=== PATIENT | female | born 1975 ===

== ENCOUNTER 2019-01-30 07:30 | Observation (INO) | payer OTHER ==
[2019-01-30] MEDS ORDERED: Bupivacaine HCl 0.25% PF (10 ml) Inj ONE (08:07)
[2019-01-30] MEDS ORDERED: Lidocaine/Epinephrine 1% 1:100000 10 ML IJ ONE (08:08)
[2019-01-30] MEDS ORDERED: ceFAZolin 1 gm in NS 1 GM/100 ML BAG IVPB ONE (08:08)
[2019-01-30 08:34] VITALS: BMI 19.1
[2019-01-30] MEDS ORDERED: Midazolam 2 MG/2 ML VIAL ONE (09:16)
[2019-01-30] MEDS ORDERED: Propofol 10 mg/ml Inj (20 ML) ONE (09:16)
[2019-01-30] MEDS ORDERED: Rocuronium 10 mg/ml (5 ml) ONE (09:25)
[2019-01-30] MEDS: HYDROmorphone 0.5 mg/0.5 ml ISec IVP PRN ×2 (12:15→12:38)
[2019-01-30] MEDS ORDERED: HYDROmorphone 0.5 mg/0.5 ml ISec ONE (12:17)
[2019-01-30] MEDS ORDERED: Oxycodone/Acetaminophen 5/325 mg Tab PO PRN ×2 (12:21)
[2019-01-30] MEDS: cefOXitin 1 GM in Sodium Chloride 0.9% 100 ML IVPB SCH (16:52)
[2019-01-30] MEDS ORDERED: Lactated Ringer's 1,000 ML IV SCH (19:00)
[2019-01-31] MEDS: cefOXitin 1 GM in Sodium Chloride 0.9% 100 ML IVPB SCH ×2 (00:10→09:09)
--- NOTE | 2019-01-31 01:20 | OP ---
PROCEDURE DATE: 01/30/2019 SURGEON: Zahra Ma MD DESKTOP ADMINISTRATOR: MANDO Gar PREOPERATIVE DIAGNOSES: Abnormal uterine bleeding, pelvic pain, fibroids, pelvic pressure, umbilical hernia. POSTOPERATIVE DIAGNOSES: Abnormal uterine bleeding, pelvic pain, fibroids, pelvic pressure, umbilical hernia with retroperitoneal fibrosis. PROCEDURES PERFORMED: Total robotic hysterectomy, bilateral salpingectomy, cystoscopy, bilateral ureteral catheterizations, bilateral ureterolysis, and umbilical hernia repair with cystoscopy. OPERATIVE FINDINGS: Enlarged greater than 250 g multifibroid uterus with ovarian and tubal adhesions to pelvic sidewall, ureter adhesion retroperitoneally, retroperitoneal fibrosis, small umbilical hernia noted that was repaired. Lisa Tyler, director medical surgical, was present for the entire case essential in entry, gaining retraction, exposure, docking the robot, obtaining access, performing the procedure, manipulating the uterine manipulator device, removing the specimens, closing all layers, repairing the hernia, and was present for the entire case. ESTIMATED BLOOD LOSS: 100 mL. BLOOD PRODUCTS: None. COMPLICATIONS: None. SPECIMENS: Right and left fallopian tube, uterus, and cervix. DESCRIPTION OF PROCEDURE: The patient was taken to the operating room where she was given general anesthesia. Once it was found to be adequate, she was placed on the operating table in dorsal supine position with legs supported using stirrups. The patient was then prepped and draped in the usual sterile fashion. The patient was given preoperative prophylactic antibiotics. Time-out was performed to confirm correct patient and correct procedure. Bimanual exam was performed with above-mentioned findings. The patient had a cystoscopy done in which the cystoscope was then inserted into the urethra. There was bilateral ureteral jets noted. No evidence of trigonitis, bladder masses or abnormalities. Ureteral catheterization was performed on either side in which 5 mL of IC-green were inserted. The cystoscope was then removed and a Tyson catheter was then inserted. A Johns retractor was placed in the anterior and posterior fornix of the vagina. The cervix was adequately visualized. The single-tooth tenaculum was then placed on the anterior lip of the cervix. The uterus was then sounded to 9 cm. Following this, the cervix was sequentially dilated to allow for the V-Care large uterine device to be inserted. The balloon was then insufflated with 10 mL of air. Following this, the green and blue cup were then applied to the cervix as appropriately. Tenaculum was removed and arms were removed. The legs were then re-positioned. The surgeon then re-gloved, and attention of then turned to the abdomen in which the umbilical incision was made after the administration of 0.25 Marcaine with epinephrine. The skin was then incised in a vertical fashion. The skin was then tented up. The fascia was identified. Scalpel was made. Confirmation of the peritoneal cavity was confirmed with Estephania clamp. The trocar then was inserted. The abdomen was insufflated with a normal opening pressure. The abdomen was insufflated to 15 mmHg of air. A laparoscope was then inserted. There was no injury or trauma noted. Following that, an 8 mm skin incision was made in the right and left lower quadrants after administration of local anesthetic and the trocars inserted under direct visualization. The patient was then placed in Trendelenburg position and the bowels were then removed out of the operative field. The operative robotic da Genet device was then docked as per the appropriate manufacture protocol. The endoscope was placed in port 2, a monopolar device in port 3 and a vessel sealer in arm 3. The appropriate cords were then connected. Following this, the round ligaments on either side were dissected, cauterized, and cut using the vessel sealer device on either side. The utero-ovarian ligaments were identified, cauterized and cut using the vessel sealer device. The distal fimbriated end of the fallopian tubes on either side were removed along the mesosalpinx up to the utero-ovarian and specimen was then removed and placed in the cul-de-sac. Following this, the ovary was noted to be adherent to the pelvic sidewall and the uterine was identified in which the IP ligament was identified and using the using the IC-green feature, the peritoneum was carefully dissected to dissect the ureter on either side to avoid injury. There was retroperitoneal fibrosis which was carefully dissected. There was no injury to the ureter. Following this, the anterior portion of the broad ligament was then incised and the bladder flap was created with monopolar scissors. This was carried in line on other side in which the ureter was also dissected on the contralateral side and the ovary was attached to the IP ligament. The ureter was dissected from all adhesions prior to dissecting the utero-ovarian removing the fallopian tube and dissecting from the round ligament to the anterior portion of the broad ligament. Once the bladder flap was created, the uterine arteries were then carefully skeletonized and the uterine arteries were cauterized using the vessel sealer device, coagulated 3 times and then cut. Again, the ureter was carefully noticed and out of the operative site. Following this, a posterior colpotomy was made with monopolar scissors and carried anteriorly along the green which was carefully dissected. Once the specimen was free, the specimen was removed through the vagina in addition to the two fallopian tubes. Following this, a suction law researcher was inserted to one of the ports and there was good hemostasis noted. A 6 inch V-Loc needle was inserted and the vaginal cuff was reapproximated and closed in a continuous manner. There was good hemostasis noted. The abdomen and pelvis was then carefully irrigated and inspected. There was good hemostasis noted. The ureter was mostly cleared from all incisions. Following this, attention was then turned to the umbilical site where there was an omental hernia noted. All instruments were removed. There was good hemostasis noted. The abdomen was then desufflated. Following this, the umbilical sac was identified and removed and the fascia was reapproximated and closed using multiple interrupted sutures of Prolene. The umbilical hernia had been repaired and the sutures had been carefully tied. Following this, the skin was reapproximated and closed with 4-0 Monocryl in a running subcuticular fashion. The abdomen was then prepped and cleaned. Steri-Strips and island dressings were then applied. Attention was then turned to the perineum in which the Tyson catheter was removed and the cystoscope was then re-introduced, and there was bilateral ureteral jets noted to be peristalsing on either side. A new Tyson catheter was inserted. At the end of the procedure, all needle, sponge and instrument counts were noted to be correct x2. The patient tolerated the procedure well and was transferred to the recovery room in stable condition. Zahra Ma MD
[2019-01-31 07:57] LABS: BASO % 0.3 % (0.0-2.0); EOS % 0.3 % (0.0-4.0); LYMPH # 3.7 K/uL (1.0-4.3); MEAN CELL VOLUME 94.2 fL (81.0-99.0); MEAN CORPUSCULAR HEMOGLOBIN 32.7 pg (27.0-31.0); MEAN CORPUSCULAR HGB CONC 34.8 g/dL (33.0-37.0); MEAN PLATELET VOLUME 9.5 fL (7.2-11.7); MONO # 0.8 K/uL (0.0-0.8); MONO % 5.4 % (0.0-10.0); NEUT # 9.7 K/uL (1.8-7.0); NRBC % 0.1 % (0.0-2.0); RBC 3.97 Mil/uL (3.80-5.20); RED CELL DISTRIBUTION WIDTH 12.8 % (11.5-14.5); WHITE BLOOD COUNT 14.3 K/uL (4.8-10.8)
[2019-01-31 08:08] LABS: ALB/GLOB RATIO 1.3 (1.0-2.1); ALBUMIN 3.7 g/dL (3.5-5.0); ALT/SGPT 24 U/L (9-52); AST/SGOT 29 U/L (14-36); BLOOD UREA NITROGEN 7 mg/dL (7-17); CALCIUM 8.9 mg/dl (8.6-10.4); GFR NON-AFRICAN AMERICAN > 60
--- NOTE | 2019-01-31 09:25 | CP.PCM.PN ---
Subjective - Date & Time of Evaluation Date of Evaluation: 01/31/19 Time of Evaluation: 09:00 - Subjective Subjective: pt seenand examiend adn reprots pain cotnrolled with medication. pt is voiding, not yet passng flatus, pt tolerating regular diet pt denies any fever, chills, naue, vomiting, cp, sob. Objective - Vital Signs/Intake and Output Vital Signs (last 24 hours): Temp Pulse Resp BP Pulse Ox 98.7 F 110 H 20 115/63 98 01/31/19 05:49 01/31/19 05:49 01/31/19 05:49 01/31/19 05:49 01/31/19 05:49 Intake and Output: 01/31/19 01/31/19 06:59 18:59 Intake Total 1980 Output Total 1500 Balance 480 - Medications Medications: Current Medications Cefoxitin Sodium 1 gm/ Sodium (Chloride) 100 mls @ 100 mls/hr IVPB Q8H DALILA; Protocol Stop: 01/31/19 09:59 Last Admin: 01/31/19 09:09 Dose: 100 mls/hr Lactated Ringer's (Lactated Ringer's) 1,000 mls @ 125 mls/hr IV .Q8H DALILA Last Admin: 01/31/19 00:08 Dose: 125 mls/hr Oxycodone/Acetaminophen (Percocet 5/325 Mg Tab) 1 tab PO Q4H PRN PRN Reason: Pain, moderate (4-7) Stop: 02/02/19 12:22 Last Admin: 01/30/19 18:05 Dose: 1 tab Oxycodone/Acetaminophen (Percocet 5/325 Mg Tab) 2 tab PO Q4H PRN PRN Reason: Pain, severe (8-10) Stop: 02/02/19 12:22 - Labs Labs: 01/31/19 07:46 01/31/19 07:46 - Constitutional Appears: Well, Non-toxic - Head Exam Head Exam: ATRAUMATIC, NORMAL INSPECTION - Eye Exam Eye Exam: Normal appearance, PERRL Pupil Exam: NORMAL ACCOMODATION - ENT Exam ENT Exam: Mucous Membranes Moist - Neck Exam Neck Exam: Full ROM - Respiratory Exam Respiratory Exam: Clear to Ausculation Bilateral, NORMAL BREATHING PATTERN - GI/Abdominal Exam GI & Abdominal Exam: Soft, Normal Bowel Sounds Additional comments: NT, ND, no guardign, no rebound tenderness, no rgiidty, +BS Incisicions c/d//i healign well no vagianl bleeding - Exam External exam: NORMAL EXTERNAL EXAM - Back Exam Back Exam: NORMAL INSPECTION - Neurological Exam Neurological Exam: Normal Gait, Oriented x3 - Skin Skin Exam: Normal Color, Warm Additional comments: negative kiah's sign Assessment and Plan (1) History of robot-assisted laparoscopic hysterectomy Assessment & Plan: s/pTRH b/l slapinecotmy, umbilical hernia repair POD #1 ember espana dc youssef regualr diet home meds encouarge ambautin simethicone prn am labs dc home rto 1 week precautions given Status: Acute
[2019-01-31] MEDS ORDERED: Simethicone 80 mg Chewtab PO PRN (10:00)
[2019-01-31 14:06] VITALS: BP 121/69; PULSE 60; RESP 18; TEMP 98.6; O2SAT 95
== END 2019-01-31 12:20 | disposition home or self-care (01) ==
LOC: C.SDS 07:30 → C.4M 12:19
PROVIDERS: ADMIT Obstetrics & Gynecology; ATTEND Obstetrics & Gynecology
DX: D21.9 Benign neoplasm of connective and other soft tissue, unspecified (principal); N13.5 Crossing vessel and stricture of ureter without hydronephrosis; N73.6 Female pelvic peritoneal adhesions (postinfective); K42.9 Umbilical hernia without obstruction or gangrene; R10.2 Pelvic and perineal pain; N83.201 Unspecified ovarian cyst, right side; N93.9 Abnormal uterine and vaginal bleeding, unspecified; K21.9 Gastro-esophageal reflux disease without esophagitis; F41.9 Anxiety disorder, unspecified
CPT/HCPCS: 36415; 49652; 51715; 58571; 80053; 85025; 86850; 86900; 88309; 96365; 96366; 96375; G0378; J0690; J0694; J1170; J1885; J2001; J2250; J2405; J2704; J3010; J7120; S2900